=== PATIENT | female | born 1970 | race African-American/Black ===

== ENCOUNTER → 2020-05-11 | Day surgery (SDC) | payer MEDICARE, MEDICAID ==
[~2020-05-11] VITALS: Ht 162.6 cm; Wt 81.6 kg
[2020-05-11] VITALS (11 sets, daily range): BP systolic 111–148; BP diastolic 34–83
[~2020-05-11] MED LIST: AMLODIPINE BESY10 MG ORAL; ATORVASTATIN CA20 MG ORAL; CLOTRIMAZOLE15 GM TOPIC; COLACE100 MG ORAL; D5 1/2NS 1,000 ML IV SCH; FOLIC ACID1 MG ORAL; FUROSEMIDE40 MG ORAL; HYDROcodone/Acetamin 5/325 tab ORAL PRN; HYDROmorphone 1mg/ml Carpuject SUBQ PRN; KLONOPIN0.5 MG ORAL; Ketorolac 30mg Inj ONE; LISINOPRIL40 MG ORAL; LR 1000ml ONE; Lidocaine 1% MPF 10mg/ml 5ml ONE; METFORMIN HCL1000 M2 ORAL; Metoclopramide 10mg/2ml Inj IVP PRN; Midazolam 2mg/2ml Inj ONE; NS Irrig 2000ml IRRIG ONE; OMEPRAZOLE40 M1 ORAL; Sterile Water Irrig 1000ml IRRIG ONE; Succinylcholine 20mg/ml 10ml vial ONE; Tylenol #3 tab (300mg/30mg) ORAL PRN; Vit D2 PO; ceFAZolin sod 1 GM in NS 55 ML IVPB ONE; fentaNYL 100 mcg/2 mL IV ONE; fentaNYL 100 mcg/2 mL IV PRN
--- NOTE | 2020-05-11 03:14 | History and Physical Report ---
DATE OF ADMISSION: 05/11/2020 PREOPERATIVE DIAGNOSIS: Metromenorrhagia, uterine fibroids, severe anemia. HISTORY OF PRESENT ILLNESS: The patient is a 49-year-old female with heavy menstrual period, anemia, uterine fibroids, and probable adenomyosis. She had multiple transfusions and Dilation and Curettage in the past for the history of severe anemia. Currently, she is getting IV iron infusions with her director strategy. After discussion, she was offered progestogen IUD versus hysterectomy versus ablation. The patient chose ablation. PAST MEDICAL HISTORY: Anemia. Also significant for hypertension. FAMILY HISTORY: Nonsignificant. ALLERGIES: None. SOCIAL HISTORY: She does not drink or smoke and she lives with her teenage son. PHYSICAL EXAMINATION: VITAL SIGNS: Blood pressure 130/85, heart rate 72, afebrile. HEAD AND NECK: Pupils equal, reactive to light. LUNGS: Clear to auscultation bilaterally. CARDIAC: Regular, rate, and rhythm. ABDOMEN: Soft, nondistended, nontender. PELVIS: Bimanual consistent with 14 week fibroid uterus. Cervix within normal limits. RECTOVAGINAL: No masses. EXTREMITIES: No clubbing, cyanosis. Trace edema. ASSESSMENT: A 49-year-old with metromenorrhagia, severe anemia. PLAN: Hysteroscopy, D and C, hydrothermal ablation (HTA). Mary Sandy M.D. DR: GRACIELA JOB#: [id number] CC: ALEE
[2020-05-11 06:18] LABS: ANION GAP 10 mmol/L (5-15); BLOOD UREA NITROGEN 9 mg/dL (7-18); CALCIUM 8.5 MG/DL (8.5-10.1); CARBON DIOXIDE 25 MMOL/L (21-32); CHLORIDE 108 MMOL/L (98-107); CREATININE 0.7 MG/DL (0.55-1.30); POTASSIUM 3.8 MMOL/L (3.5-5.1); SODIUM 143 MMOL/L (136-145)
--- NOTE | 2020-05-11 06:59 | Pre-Procedure Note/Attestation ---
Pre-Procedure Note/Attestation Complete Prior to Procedure Procedure Narrative: hysteroscopy Dilation and Curettage/ HTA -hydrothermal ablation Indications for Procedure Pre-Operative Diagnosis: menorrhagia and uterine fibroids Attestation I attest that I discussed the nature of the procedure; its benefits; risks and complications; and alternatives (and the risks and benefits of such alternatives ), prior to the procedure, with the patient (or the patient's legal client support representative). I attest that, if there was a reasonable possibility of needing a blood transfusion, the patient (or the patient's legal client support representative) was given the [facility] standardized written summary, pursuant to the [employer] Blood Safety Act ([place] Health and Safety Code # 1645, as amended). I attest that I re-evaluated the patient just prior to the surgery and that there has been no change in the patient's H&P, except as documented below: Mary Sandy MD May 11, 2020 06:59
--- NOTE | 2020-05-11 08:21 | Brief Operative Note ---
Immediate Post Operative Note Operative Note Pre-op Diagnosis: menorrhagia and uterine fibroids Procedure: hysteroscopy, dilation and curettage, hydrothermoablation (HTA) Post-op Diagnosis: same Surgeon: sony garcia Anesthesia: general Specimen: yes Complications: none Condition: stable Fluids: crystalloid Estimated Blood Loss: minimal Drains: none Implant(s) used?: No Sony Garcia MD May 11, 2020 08:21
--- NOTE | 2020-05-11 08:31 | Immediate Post-Op Evaluation ---
Immediate Post-Op Evalulation Immediate Post-Op Evalulation Procedure: D&C, ablation Date of Evaluation: May 11, 2020 Time of Evaluation: 08:31 IV Fluids: 1000 Blood Pressure Systolic: 122 Blood Pressure Diastolic: 66 Pulse Rate: 82 Respiratory Rate: 14 O2 Sat by Pulse Oximetry: 100 Temperature (Fahrenheit): 97.7 Nausea: No Vomiting: No Patient Status: awake, reacts, patent Hydration Status: adequate Drug: ancef Given Within 1 Hr of Incision: Yes Time Given: 07:05 Phyllis Barnett CRNA May 11, 2020 08:31
--- NOTE | 2020-05-11 08:33 | Anethesia Preoperative Eval ---
Anesthesia Pre-op PMH/ROS General Date of Evaluation: May 11, 2020 Time of Evaluation: 07:00 Anesthesiologist: annelise ASA Score: ASA 3 Mallampati Score Class I : Soft palate, uvula, fauces, pillars visible Class II: Soft palate, uvula, fauces visible Class III: Soft palate, base of uvula visible Class IV: Only hard plate visible Mallampati Classification: Class II Surgeon: luisito Diagnosis: heavy cycle Surgical Procedure: D&C Family History: no anesthesia problems Allergies: Coded Allergies: ADHESIVE TAPE (Verified Allergy, Intermediate, rash, 05/10/20) Medications: see eMAR Patient NPO?: Yes NPO Date: May 11, 2020 NPO Time: 00:01 Past Medical History Cardiovascular: Reports: HTN; Denies: CAD, GA, valve dz, arrhythmia, other Pulmonary: Reports: asthma Gastrointestinal/Genitourinary: Reports: GERD; Denies: CRI, ESRD, other Neurologic/Psychiatric: Denies: dementia, CVA, depression/anxiety, TIA, other Endocrine: Reports: DM; Denies: hypothyroidism, steroids, other HEENT: Denies: cataract (L), cataract (R), glaucoma, KLETSEL DEHE WINT[place] (L), KLETSEL DEHE [place]INT[place] (R), other Hematology/Immune: Reports: anemia; Denies: DVT, bleeding disorder, other Musculoskeletal/Integumentary: Denies: OA, RA, DJD, DDD, edema, other Other: obesity PSxH Narrative: gastric bypass Anesthesia Pre-op Phys. Exam Physician Exam Last Vital Signs Date Time Temp Pulse Resp B/P (MAP) Pulse Ox O2 Delivery O2 Flow Rate FiO2 05/11/20 05:39 Room Air 05/11/20 05:39 96.7 72 18 122/74 95 Constitutional: NAD Neurologic: CN 2-12 intact Cardiovascular: RRR Respiratory: CTA Gastrointestinal: S/NT/ND Airway Exam Mallampati Classification 2 Mallampati Score: Class III MO: limited ROM: full Dentures: no upper, no lower Anesthesia Pre-op A/P Labs Chemistry Test 05/11/20 05:55 Sodium Level 143 MMOL/L (136-145) Potassium Level 3.8 MMOL/L (3.5-5.1) Chloride Level 108 MMOL/L (98-107) H Carbon Dioxide Level 25 MMOL/L (21-32) Anion Gap 10 mmol/L (5-15) Blood Urea Nitrogen 9 mg/dL (7-18) Creatinine 0.7 MG/DL (0.55-1.30) Estimat Glomerular Filtration Rate > 60 mL/min (>60) Glucose Level 96 MG/DL (74-106) POC Whole Blood Glucose 92 MG/DL (74-106) Calcium Level 8.5 MG/DL (8.5-10.1) Urine Test Test 05/11/20 05:20 Urine HCG, Qualitative Negative (NEGATIVE) Studies Pre-op Studies: EKG - sr Risk Assessment & Plan Assessment: covid neg Plan: general Status Change Before Surgery: No Pre-Antibiotics Drug: ancef Given Within 1 Hr of Incision: Yes Time Given: 07:06 Phyllis Barnett CRNA May 11, 2020 08:33
--- NOTE | 2020-05-11 09:15 | Operative Note - Dictated ---
DATE OF OPERATION: 05/11/2020 PREOPERATIVE DIAGNOSES: Metromenorrhagia, fibroid uterus, anemia. POSTOPERATIVE DIAGNOSES: Metromenorrhagia, fibroid uterus, anemia. PROCEDURE: Dilation and curettage. Hydrothermal ablation of endometrial cavity. ANESTHESIA: General. ANESTHESIOLOGIST: . ESTIMATED BLOOD LOSS: Minimal. COMPLICATIONS: None. PROCEDURE IN DETAIL: After ensuring informed consent, the patient was taken to the operating room where general anesthesia was induced. The patient was sterilely prepped and draped. Weighted speculum was placed in the vagina. Cervix was dilated to an 8 Hegar dilator. Hysteroscope was placed inside the uterine cavity and placement inside the uterine cavity was confirmed by observing bilateral ostia. Uterine cavity was clear. There was some slight indentation in the anterior wall, presumably from intramural fibroid. Next, hysteroscope was withdrawn and fractional curettage was performed. After this, hysteroscope was replaced inside the uterine cavity and seal was performed and a test for to see if any fluid escape was performed. There was none. So next, hydrothermal ablation was initiated. Uterine cavity was heated to 80 degrees for 10 minutes and then cool down for 2 minutes. At the end of the procedure, diagnostic hysteroscopy was resumed and the uterine cavity looked like it received excellent endometrial ablation. Then, hysteroscope was removed. There was a bleeding area on the cervix from where the tenaculum was placed, which was suture with 0 Vicryl. At the end of the procedure, all instrument and lap counts were correct x2. The patient was taken to the recovery area in stable condition and breathing on her own. Mary Sandy M.D. DR: LOLITA JOB#: [id number] CC:
--- NOTE | 2020-05-11 10:23 | 48 Hour Post Anesthesia Eval ---
Post Anesthesia Evaluation Procedure: D&C, ablation Date of Evaluation: May 11, 2020 Time of Evaluation: 10:23 Blood Pressure Systolic: 136 0: 85 Pulse Rate: 71 Respiratory Rate: 14 O2 Sat by Pulse Oximetry: 98 Airway: patent Nausea: No Vomiting: No Hydration Status: adequate Cardiopulmonary Status: stable Mental Status/LOC: patient returned to baseline Follow-up Care/Observations: na Post-Anesthesia Complications: none Follow-up care needed: N/A Phyllis Barnett CRNA May 11, 2020 10:23
== END | disposition home or self-care (01) ==
LOC: SUR 05:06
DX: N92.1 Excessive and frequent menstruation with irregular cycle (principal); D25.9 Leiomyoma of uterus, unspecified; D64.9 Anemia, unspecified; I10 Essential (primary) hypertension; K21.9 Gastro-esophageal reflux disease without esophagitis; E11.9 Type 2 diabetes mellitus without complications; E66.9 Obesity, unspecified; Z98.84 Bariatric surgery status; Z68.30 Body mass index [BMI] 30.0-30.9, adult
CPT/HCPCS: 36415; 58563; 80048; 81025; 82962; 94003; J0330; J0690; J1885; J2250; J2405; J2704; J2765; J3010; J7120; U0002; 94150